=== PATIENT | female | born 1985 | race Caucasian/White ===

== ENCOUNTER → 2016-11-07 | Outpatient (CLI) | payer OTHER ==
[~2016-11-07] MED LIST: CELEXA PO; FLAGYL PO; LEVAQUIN PO; YASMIN 28 TABLE1 TAB PO
--- NOTE | ~2016-11-07 | TM ---
[id number] NAME: HARRY WALKER MR#: [id number] EXAM Regular Treadmill Stress Test DESCRIPTION Resting heart rate is 78, resting blood pressure is 106/71 mmHg. Baseline EKG shows normal sinus rhythm. No significant ST-T wave changes. PROCEDURE The patient was made to exercise on a standard [place] protocol. Total exercise time is 8 minutes completing two minutes of stage 3 on a standard [place]ac protocol. Test stopped because target heart rate achieved. No complaints of chest pain or extreme shortness of breath. Maximal heart rate obtained is 190 which is 101% of maximal predicted heart rate. Maximal blood pressure obtained is 130/[address]-T wave changes suggestive of ischemia. No arrhythmias noted. CONCLUSION 1. Fair exercise tolerance. 2. There is no clinical, hemodynamic or EKG evidence of ischemia at good workload (101% of maximal predicted heart rate, 10.1 METs). 3. Normal heart rate and blood pressure response. 4. Normal regular treadmill stress test. Dictated by...
== END | disposition home or self-care (01) ==
LOC: CEKG 08:36
DX: I34.1 Nonrheumatic mitral (valve) prolapse (principal); R07.89 Other chest pain
CPT/HCPCS: 93017

== ENCOUNTER → 2016-11-29 | Outpatient (CLI) | payer OTHER | END | disposition home or self-care (01) | LOC: CECH 13:02 | DX: R07.89 Other chest pain (principal); I34.1 Nonrheumatic mitral (valve) prolapse | CPT/HCPCS: 93306 ==